=== PATIENT | female | born 1995 | race African-American/Black ===

== ENCOUNTER 2022-09-09 18:19 | Emergency (ER) | payer BC, SELFPAY ==
--- NOTE | 2022-09-09 19:33 | ED.FEMALEGU ---
HPI - Female Genitourinary General Chief complaint: Urogenital-Female Stated complaint: std check Time Seen by Provider: 09/09/22 19:32 Source: patient Mode of arrival: ambulatory Limitations: no limitations History of Present Illness HPI Narrative: Patient is a 27-year-old female with a recent history of gonorrhea presenting to the emergency department for evaluation of vaginal discharge. Patient reports she was treated for gonorrhea over a month ago, reports she has had continued vaginal discharge, irritation, redness. She denies dysuria or hematuria. She denies pelvic pain, flank pain. She denies fever, chills, nausea or vomiting. Patient states that she was compliant with treatment over a month ago, but has had unprotected vaginal intercourse since that time. She denies vesicles or lesions. She denies history of genital herpes. Related Data Allergies Allergy/AdvReac Type Severity Reaction Status Date / Time No Known Allergies Allergy Verified 09/09/22 19:37 Review of Systems Review of Systems: CONSTITUTIONAL: Denies fever CARDIOVASCULAR: Denies chest pain RESPIRATORY: Denies cough or dyspnea. GASTROINTESTINAL: Denies abdominal pain, denies pelvic pain : Reports vaginal discharge, redness SKIN: Denies rash MUSCULOSKELETAL: Denies back pain NEUROLOGIC: Denies headache PMFSH Past Medical History Medical History (Updated 09/09/22 @ 20:39 by Linda Lopez MD) Gonorrhea Surgical History Surgical History (Updated 09/09/22 @ 19:44 by Linda Lopez MD) H/O hernia repair Social History Social History (Updated 09/09/22 @ 19:45 by Linda Lopez MD) Smoking status: Current every day smoker Tobacco type: cigarettes Alcohol intake: never Substance use: never Gender identity (if verbalized by the patient): Female Exam Narrative: GENERAL: Awake, alert, conversant HEAD: Normocephalic, atraumatic. EYES: PERRLA and EOMI. ENT: Nares clear, no rhinorrhea or epistaxis. Mucous membranes moist. NECK: Supple. CHEST: No respiratory distress, breathing even and non labored HEART: Regular rate, sinus rhythm ABDOMEN:Non distended, non tender, no suprapubic tenderness : Labia majora and minora normal without lesions. Vagina without blood. No cervical motion tenderness. No adnexal tenderness or fullness bilaterally. Scant mucoid discharge present. No lesions or vesicles. No ecchymosis. No significant erythema. EXTREMITIES: Normal range of motion. No edema. SKIN: Warm, dry, no rash. NEURO:No focal deficits. Alert and oriented x3, ambulatory with a narrow based, steady gait, no ataxia Course Vital Signs Vital signs: Vital Signs Temperature 37.1 C 09/09/22 19:59 Pulse Rate 71 09/09/22 19:59 Respiratory Rate 16 09/09/22 19:59 Blood Pressure 120/82 09/09/22 19:59 Pulse Oximetry 99 09/09/22 19:59 Temperature 37.1 C 09/09/22 19:59 Pulse Rate 71 09/09/22 19:59 Respiratory Rate 16 09/09/22 19:59 Blood Pressure 120/82 09/09/22 19:59 Pulse Oximetry 99 09/09/22 19:59 MDM - Female Genitourinary MDM Narrative Medical decision making narrative: Patient presenting for evaluation with concern for sexual transmitted infection given exposure, vaginal discharge. Time of assessment, ABCs are intact and vital signs are stable. Patient is well-appearing without pelvic pain, flank pain, dysuria. Pelvic exam is reassuring, cervix is normal without cervical motion tenderness, erythema, lesion. There are no vesicles. There is no bleeding. There is no adnexal fullness or tenderness. This may be candidal in nature given recent course of section has been infection treatment, but patient is not sure that she took the entire dose and has had unprotected intercourse since most recent treatment. We will plan for empiric treatment after shared decision-making with patient. We will also treat with fluconazole. Patient given Rocephin, we discharged home with doxycycline and [place]
[2022-09-09 19:59] VITALS: BP 120/82; PULSE 71; RESP 16; TEMP 37.1; O2SAT 99
[2022-09-09 20:17] LABS: Add Urine Microscopic? YES; Appearance Urine Clear (Clear); Bilirubin Urine Negative (Negative); Blood Urine Negative (Negative); Color Urine Yellow (Yellow); Glucose Urine UA Negative (Negative); Ketones Urine Negative (Negative); Leukocyte Esterase Ur Negative LEU/UL (Negative); Nitrate Urine Negative (Negative); Protein Urine Negative (Negative); Specific Grav Ur >= 1.030 (1.001-1.035)
[2022-09-09] MEDS: cefTRIAXone 1 GM VIAL 0.5 GM IM (20:32)
[2022-09-09] MEDS: LIDOCAINE HCL 1% LOCAL INJ 20 ML VIAL (20:33)
[2022-09-09 21:16] VITALS: BP 109/83; PULSE 63; RESP 16; O2SAT 99
[2022-09-09] MEDS: FLUCONAZOLE 150 MG TABLET PO (21:16)
[2022-09-09] MEDS: AZITHROMYCIN 250 MG TABLET 1000 MG PO (21:16)
== END 2022-09-09 21:28 | disposition home or self-care (01) ==
LOC: ANHED 20:42
PROVIDERS: Emergency Provider Emergency Medicine
DX: N76.0 Acute vaginitis (principal)
CPT/HCPCS: 81001; 81025; 87070; 87491; 87591; 87808; 96372; 99284; A9270; J0696